=== PATIENT | male | born 1955 | race Caucasian/White ===

== ENCOUNTER 2016-12-17 08:33 | Emergency (ER) | payer BC ==
[~2016-12-17] VITALS: Ht 172.7 cm; Wt 75.0 kg
[2016-12-17 08:40] VITALS: Ht 172.7 cm; Wt 75.0 kg
--- NOTE | 2016-12-17 08:59 | ERD ---
ER Documentation Chief Complaint Date/Time DATE: 12/17/16 TIME: 08:55 Chief Complaint NON-TRAUMATIC LEFT HIP/THIGH/KNEE PAIN X2 WEEKS HPI 61-year-old male who presents emergency department for nontraumatic left hip/ left lower back pain that radiates to left lower extremity for 2 weeks. Denies headache, dizziness, blurry vision, neck pain, shoulder pain, chest pain , trauma, injury, falls, abdominal pain, nausea, vomiting, constipation, diarrhea, urinary symptoms, loss of bowel and bladder control, difficulty walking, numbness or tingling sensation, recent travel, recent exposure to any illness, recent antibiotic use in the last 3 months, fever, chills. No known drug allergies. Past medical history of hypertension, prostate cancer. Surgical history of prostatectomy secondary to prostate cancer 2009. Medication: Hydroxyzine, vitamin D D3, amlodipine. Social: Not working at this time. Denies smoking, use of alcohol, illegal drugs. ROS All systems reviewed and are negative except as per history of present illness. Medications Home Meds Active Scripts Loratadine* (Claritin*) 10 Mg Capsule, 10 MG PO DAILY for 10 Days, CAP Prov:PASILABAN,FAZALAR F 12/17/16 Diphenhydramine Hcl* (Benadryl*) 25 Mg Cap, 25 MG PO Q8, #30 CAP Prov:PASILABAN,FAZALAR F 12/17/16 Naproxen* (Naprosyn*) 500 Mg Tablet, 500 MG PO BID Y for PAIN AND/OR INFLAMMATION, #20 TAB Prov:PASILABAN,FAZALAR F 12/17/16 Cyclobenzaprine Hcl* (Cyclobenzaprine Hcl*) 10 Mg Tablet, 10 MG PO Q12 Y for PAIN, #20 TAB Prov:PASILABAN,KLAR F 12/17/16 Allergies Allergies: Coded Allergies: No Known Allergy (Unverified , 12/17/16) Physical Exam Vitals Vital Signs Date Time Temp Pulse Resp B/P Pulse Ox O2 Delivery O2 Flow Rate FiO2 12/17/16 08:40 98.2 68 16 164/77 98 Physical Exam Const: [] Head: Atraumatic Eyes: Normal Conjunctiva ENT: Normal External Ears, Nose and Mouth. Neck: Full range of motion..~ No meningismus. Resp: Clear to auscultation bilaterally Cardio: Regular rate and rhythm, no murmurs Abd: Soft, non tender, non distended. Normal bowel sounds Skin: No petechiae or rashes Back: No midline or flank tenderness. Positive left straight leg test. C- spine/T-spine/L-spine is in midline and is good and full range of motion without point of tenderness. Ext: No cyanosis, or edema Neur: Awake and alert. Cranial nerves II through XII are intact. Romberg test negative. Psych: Normal Mood and Affect Results 24 hrs Current Medications Medications (Trade) Dose Ordered Sig/Roberta Route PRN Reason Start Time Stop Time Status Last Admin Dose Admin Ketorolac Tromethamine (Toradol) 60 mg ONCE STAT IM 12/17/16 09:05 12/17/16 09:06 DC 12/17/16 09:16 Procedures/MDM 61-year-old male who presents emergency department for nontraumatic left hip/ left lower back pain that radiates to left lower extremity for 2 weeks. Denies headache, dizziness, blurry vision, neck pain, shoulder pain, chest pain , trauma, injury, falls, abdominal pain, nausea, vomiting, constipation, diarrhea, urinary symptoms, loss of bowel and bladder control, difficulty walking, numbness or tingling sensation, recent travel, recent exposure to any illness, recent antibiotic use in the last 3 months, fever, chills. No known drug allergies. Past medical history of hypertension, prostate cancer. Surgical history of prostatectomy secondary to prostate cancer 2009. Medication: Hydroxyzine, vitamin D D3, amlodipine. Social: Not working at this time. Denies smoking, use of alcohol, illegal drugs. Physical examination are unremarkable except with the patient has positive left straight leg test. Differential diagnosis: Abdominal aortic aneurysm versus fracture versus dislocation versus displacement versus contusion versus sprain versus musculoskeletal spasm versus pyelonephritis versus kidney stone versus sciatica Medical decision making: Will be discharged with a final diagnosis of sciatica. Will prescribe Flexeril, naproxen. Follow-up with primary care physician the next 24-48 hours. Come back in the emergency department for any new symptoms or any worsening of symptoms. All questions and concerns were answered. Patient verbalized understanding and agreed with the plan of care. Departure Diagnosis: Primary Impression: Sciatica Condition: Stable Additional Instructions: Follow-up with primary care physician the next 24-48 hours. Come back here in the emergency department for any new symptoms or any worsening of symptoms. All questions and concerns were answered. Patient verbalized understanding and agreed with the plan of care. VINCENT NAIK Dec 17, 2016 08:59
[2016-12-17] MEDS ORDERED: NAPR-260 PO (09:01)
[2016-12-17] MEDS ORDERED: CYCL-319 PO (09:01)
[2016-12-17] MEDS ORDERED: BEN25 PO (09:01)
[2016-12-17] MEDS ORDERED: LORA10CA PO (09:02)
[2016-12-17] MEDS ORDERED: KETOROLAC 60 MG INJ IM STA (09:05)
== END 2016-12-17 09:24 | disposition home or self-care (01) ==
LOC: FTE 08:33
DX: M54.42 Lumbago with sciatica, left side (principal); I10 Essential (primary) hypertension; Z85.46 Personal history of malignant neoplasm of prostate
CPT/HCPCS: 96372; 99284; J1885